=== PATIENT | female | born 1995 | race Two or more races ===

== ENCOUNTER 2017-08-03 15:36 | Emergency (ER) | payer MEDICAID, SELFPAY ==
--- NOTE | 2017-08-03 16:47 | RAD ---
LEFT FOOT THREE VIEWS: HISTORY: Fall. Left foot injury. FINDINGS: Lisfranc joint alignment is anatomic. Plantar arch is maintained. Pins and screws transfix the alyssa caneus and talar necks. Mild osteophytosis is present throughout the foot. There is hallux valgus and bunion deformity. No acute fracture or dislocation are visible. Pes planus is apparent on the lateral view. There is dystrophic calcification overlying the plantar surface of the foot. IMPRESSION: 1. Postoperative and degenerative changes of the left foot as detailed above. No acute osseous abnor malities are demonstrated. 2. Hallux valgus with bunion deformity. POS: [facility]
--- NOTE | 2017-08-03 16:53 | RAD ---
RIGHT FOOT THREE VIEWS: HISTORY: Right foot injury. FINDINGS: No comparison. Pes planus is apparent on the lateral view. Lisfranc joint alignment is anatomic. Extensive postop erative changes consist of multiple plate and screws transfixing the mid-foot and calcaneus. The lo ng lag screw transfixing the distal talus extends beyond the anterior cortex of the talus, abutting the posterior margin of the cuneiforms. IMPRESSION: 1. No acute fracture or dislocation are evident. 2. Extensive postoperative changes of the right foot, including a talar screw extending to the taloc uneiform joint. Clinical correlation regarding signs and symptoms of chronic mid-foot pain is requi red. Please consider orthopedic evaluation. POS: [facility]
[2017-08-03] MEDS ORDERED: Ibuprofen 800 MG TAB ONE (17:48)
== END 2017-08-03 18:10 | disposition home or self-care (01) ==
LOC: ERS 15:36 → EDSEX 15:36 → ERS 18:10
DX: S93.401A Sprain of unspecified ligament of right ankle, initial encounter (principal); S93.601A Unspecified sprain of right foot, initial encounter; F31.9 Bipolar disorder, unspecified; F41.9 Anxiety disorder, unspecified; I10 Essential (primary) hypertension; X50.9XXA Other and unspecified overexertion or strenuous movements or postures, initial encounter